=== PATIENT | male | born 1995 | race Caucasian/White ===

== ENCOUNTER → 2019-04-03 10:48 | Outpatient (BNVA) | payer OTHER, SELFPAY | PROVIDERS: PCP Family Medicine; Visit Provider Family Medicine | DX: R40.20 Unspecified coma (principal) | CPT/HCPCS: 36415; 80053; 84439; 84443; 85025 ==

== ENCOUNTER → 2020-11-04 12:20 | Outpatient (BNVA) | payer OTHER, SELFPAY | PROVIDERS: PCP Family Medicine; Visit Provider Nurse Practitioner Family | DX: Z20.822 Contact with and (suspected) exposure to COVID-19 (principal) | CPT/HCPCS: 87635 ==